=== PATIENT | female | born 1995 | race Hispanic/Latino ===

== ENCOUNTER 2023-12-09 14:03 | Emergency (ER) | payer OTHER ==
--- NOTE | 2023-12-09 14:36 | RAD REPORT ---
EXAMINATION: Transvaginal OB COMPARISON: None. HISTORY: vaginal bleeding and TECHNIQUE: Real-time ultrasound was performed through the pelvis. A transvaginal scan was performed t o better visualize the intrauterine contents and adnexa. FINDINGS: There is a single living intrauterine . Cardiac activity measured at 114 BPM. There is no visible subchorionic hemorrhage. Both ovaries are visualized and appear unremarkable. There is no free fluid in the cul-de-sac. Measurements and Calculations: Dalton rump length 0.6 cm, consistent with a sonographic age of 6 weeks, 3 days. IMPRESSION: Single living intrauterine , with a composite sonographic age of 6 weeks, 3 days.
[2023-12-09 15:19] LABS: Absolute Basophils 0.1 K/uL (0-0.5); Absolute Eosinophils 0.1 K/uL (0-0.5); Absolute Lymphocytes (CBC) 1.9 K/uL (0.7-4.9); Absolute Monocytes 0.7 K/uL (0.1-1.3); Absolute Neutrophil 6.7 K/uL (1.8-8.0); Basophils % 0.9 % (0-1.3); Eosinophils % 1.2 % (0-4.4); Hematocrit 41.1 % (36.0-45.0); Hemoglobin 13.6 g/dL (12.0-15.0); Lymphocytes % 19.8 % (15.3-44.8); MCH 29.4 pg (27.0-35.0); MCV 89.3 fL (80-100); Monocytes % 7.4 % (3.3-12.3); Neutrophils % 70.7 % (41.7-73.7); Platelets 227 thou/uL (152-406); RBC Red Blood Cell Count 4.61 M/uL (3.86-4.86); Red Cell Distribution Width 13.9 % (12.1-15.2)
[2023-12-09 15:21] LABS: Specific Gravity 1.019 (1.005-1.030); Sqamous Epithelial <5 /HPF (None Seen); Urine Bacteria None Seen /HPF (<20); Urine Bilirubin NEGATIVE (Negative); Urine Blood 3+ (Negative); Urine Clarity Clear (Clear); Urine Color Light-Yellow (Yellow); Urine Crystals Unidentified Few /HPF (None Seen); Urine Culture Reflex Order NOT NEEDED; Urine Glucose NEGATIVE (Negative); Urine Ketones 1+ (Negative); Urine Micro Reflex YN NO BILL MICROSCOPIC; Urine Mucus Slight /HPF (None Seen); Urine Nitrite NEGATIVE (Negative); Urine Protein NEGATIVE (Negative); Urine RBC >50 /HPF (None Seen); Urine Urobilinogen Normal (Normal); Urine WBC <5 /HPF (<5); Urine WBC Clump Rare /HPF (None Seen); Urine pH 5.5 (5.0-7.0)
[2023-12-09 15:36] LABS: Anion Gap 8.9 mEq/L (5.0-15.0); Potassium 3.9 mEq/L (3.5-5.1)
--- NOTE | 2023-12-09 15:58 | EDPHYS ---
Physician Documentation [facility] Name: Tahira Howell Age: 28 yrs Sex: Female : 1995 Arrival Date: 12/09/2023 Time: 14:03 Bed 19 Private MD: ED Physician Dwayne Nuñez HPI: 12/08 15:55 This 28 yrs old Female presents to ER via Ambulatory with complaints of ec2 Vaginal Bleeding, + Preg <12wks, Abdominal Pain. 15:55 Patient arrives today for evaluation of vaginal bleeding. Patient reports that she is ec2 several weeks . Has had outpatient ultrasound with a sac with no pole noted. Patient reports no significant medical problems, this is her first . . 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 - Infectious Disease History:: Denies. - Social history:: Smoking status: Patient denies any tobacco usage or history of. ROS: 15:55 Constitutional: as per hpi ec2 Exam: 15:55 Constitutional: GEN: NAD Head: atraumatic Eyes: EOMI Ears: External ears are ec2 normal. CV: regular rate LUNGS: no respiratory distress ABD: non-distended SKIN: no evidence of rashes MSK: no evidence of trauma Vital Signs: 14:48 BP 116 / 69; Pulse 75; Resp 16; Temp 98.6; Pulse Ox 98% on R/A; Weight 88.45 kg; Height cm10 5 ft. 2 in. ; Pain 5/10; 15:15 BP 111 / 70; Pulse 75; Resp 16; Pulse Ox 98% ; me1 16:00 BP 111 / 69; Pulse 86; Resp 16; Temp 98.4; Pulse Ox 99% ; me1 14:48 Body Mass Index 35.67 (88.45 kg, 157.48 cm) cm10 14:48 Pain Scale: Adult cm10 MDM: 14:07 Patient medically screened. ec2 15:55 Data reviewed: vital signs. ED course: Patient arrives today for evaluation of vaginal ec2 bleeding in the setting of . Examination remarkable for well-appearing nontoxic individuals otherwise in no acute distress. Lab work is reassuring with appropriate hCG elevation. Ultrasound shows 6-week and 3-day of approximately. Will discharge home and have her follow-up obstetrics. Return precautions given. . 12/08 14:08 Order name: CBC with Diff; Complete Time: 15:27 ec2 12/08 14:08 Order name: Abo/rh Typing; Complete Time: 15:55 ec2 12/08 14:08 Order name: BMP; Complete Time: 15:55 ec2 12/08 14:08 Order name: UAM; Complete Time: 15:27 ec2 12/08 14:08 Order name: HCG-Quantitative; Complete Time: 15:55 ec2 12/08 14:08 Order name: Transvaginal OB US; Complete Time: 14:50 ec2 Administered Medications: No medications were administered Disposition Summary: 12/09/23 15:57 Discharge Ordered Notes: Location: Home ec2 Condition: Stable ec2 Diagnosis - related conditions, unspecified ec2 - Other specified abnormal uterine and vaginal bleeding ec2 Followup: ec2 - With: Private Physician - When: - Reason: Re-evaluation by your physician Discharge Instructions: - Discharge Summary Sheet ec2 - Vaginal Bleeding During , First Trimester ec2 Forms: - Medication Reconciliation Form ec2 - Antibiotic Education ec2 - Prescription Opioid Use ec2 - Patient Portal Instructions ec2 - Leadership Thank You Letter ec2 Signatures: Dispatcher [employer] Stefania Matt RN RN cm10 Dwayne Nuñez MD MD ec2
--- NOTE | 2023-12-09 15:58 | ER ---
Nurse's Notes [facility] Name: Tahira Howell Age: 28 yrs Sex: Female : 1995 Arrival Date: 12/09/2023 Time: 14:03 Bed 19 Private MD: Diagnosis: related conditions, unspecified;Other specified abnormal uterine and vaginal bleeding Presentation: 12/08 14:48 Chief complaint: Patient states: Spotting X1 week that's getting worse and abdominal cm10 cramping. Pt states she saw her OB on Tuesday. . Coronavirus screen: Client denies travel out of the [place] in the last 14 days. Ebola Screen: Patient denies travel to an Ebola-affected area in the 21 days before illness onset. No symptoms or risks identified at this time. Initial Sepsis Screen: Does the patient meet any 2 criteria? No. Patient's initial sepsis screen is negative. Does the patient have a suspected source of infection? No. Patient's initial sepsis screen is negative. Risk Assessment: Do you want to hurt yourself or someone else? Patient reports no desire to harm self or others. Onset of symptoms was December 09, 2023. 14:48 Method Of Arrival: Ambulatory cm10 14:48 Acuity: JUVENTINO 3 cm10 Triage Assessment: 14:50 General: Appears in no apparent distress. comfortable, Behavior is calm, cooperative. cm10 Neuro: No deficits noted. Level of Consciousness is awake, alert, obeys commands, Oriented to person, place, time, situation, Appropriate for age. Respiratory: No deficits noted. Airway is patent Respiratory effort is even, unlabored, Respiratory pattern is regular, symmetrical. 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 - Infectious Disease History:: Denies. - Social history:: Smoking status: Patient denies any tobacco usage or history of. Screenin:52 [facility] ED Fall Risk Assessment (Adult) History of falling in the last 3 months, cm10 including since admission No falls in past 3 months (0 pts) Confusion or Disorientation No (0 pts) Intoxicated or Sedated No (0 pts) Impaired Gait No (0 pts) Mobility Assist Device Used No (0 pt) Altered Elimination No (0 pt) Score/Fall Risk Level 0 - 2 = Low Risk Oriented to surroundings, Maintained a safe environment, Hourly rounding (assess needs \T\ fall precautionary measures) done. Abuse screen: Denies threats or abuse. Denies injuries from another. Nutritional screening: No deficits noted. Tuberculosis screening: No symptoms or risk factors identified. Assessment: 15:18 General: Appears comfortable, well groomed, well developed, well nourished, Behavior is me1 calm, cooperative, appropriate for age, Reports Spotting X1 week that's getting worse and abdominal cramping. Pt states she saw her OB on Tuesday. . Pain: Complains of pain in suprapubic area, right lower quadrant and left lower quadrant Pain does not radiate. Pain currently is 3 out of 10 on a pain scale. Quality of pain is described as crampy, Pain began one week ago Is continuous. Neuro: Level of Consciousness is awake, alert, obeys commands, Oriented to person, place, time, situation, Appropriate for age. Cardiovascular: Patient's skin is warm and dry. Respiratory: Airway is patent Respiratory effort is even, unlabored, Respiratory pattern is regular, symmetrical. GI: No signs and/or symptoms were reported involving the gastrointestinal system. : Reports vaginal bleeding that is bright red, since one week ago. EENT: No signs and/or symptoms were reported regarding the EENT system. Derm: Skin is intact, is healthy with good turgor, Skin is pink, warm \T\ dry. Musculoskeletal: No signs and/or symptoms reported regarding the musculoskeletal system. Vital Signs: 14:48 BP 116 / 69; Pulse 75; Resp 16; Temp 98.6; Pulse Ox 98% on R/A; Weight 88.45 kg; Height cm10 5 ft. 2 in. ; Pain 5/10; 15:15 BP 111 / 70; Pulse 75; Resp 16; Pulse Ox 98% ; me1 16:00 BP 111 / 69; Pulse 86; Resp 16; Temp 98.4; Pulse Ox 99% ; me1 14:48 Body Mass Index 35.67 (88.45 kg, 157.48 cm) cm10 14:48 Pain Scale: Adult cm10 ED Course: 14:07 Patient arrived in ED. im 14:07 Dwayne Nuñez MD is Attending Physician. ec2 14:24 Transvaginal OB US In Process Unspecified. EDMS 14:49 Triage completed. cm10 14:50 Arm band placed on left wrist. Patient placed in an exam room, on a stretcher. cm10 14:53 Patient has correct armband on for positive identification. Provided Education on: ER cm10 process and procedures.. 15:09 Inserted saline lock: 22 gauge in right antecubital area, using aseptic technique. ss Blood collected. Flushed with 10 mL NS. 15:09 HCG-Quantitative Sent. ss 15:09 UAM Sent. ss 15:09 BMP Sent. ss 15:09 CBC with Diff Sent. ss 15:14 Abo/rh Typing Sent. 15:15 Constance Miguel, RN is Primary Nurse. me1 15:18 No provider procedures requiring assistance completed. me1 16:16 IV discontinued, intact, bleeding controlled, No redness/swelling at site. Pressure ap3 dressing applied. Administered Medications: No medications were administered Medication: 14:52 VIS not applicable for this client. cm10 Outcome: 15:57 Discharge ordered by . ec2 16:15 Discharged to home ambulatory, ap3 16:15 Condition: good 16:15 Discharge instructions given to patient, Instructed on discharge instructions, follow up and referral plans. Demonstrated understanding of instructions, follow-up care, 16:16 Patient left the ED. ap3 Signatures: Dispatcher [employer] EDMS Kathryn Pierre RN RN Kaity Trammell RN RN ap3 Isabel Juarez Clarissa, RN RN cm10 Constance Miguel RN RN me1 Dwayne Nuñez MD MD ec2 Corrections: (The following items were deleted from the chart) 15:18 14:48 Chief complaint: Patient states: Spotting X1 week that's getting worse and me1 abdominal cramping. Pt states she saw her OB on Tuesday. cm10
[2023-12-09 18:13] VITALS: BP 111/69; TEMP 98.4; O2SAT 99
== END 2023-12-09 16:16 | disposition home or self-care (01) ==
LOC: ER 14:03
DX: O20.9 Hemorrhage in early pregnancy, unspecified (principal); Z3A.01 Less than 8 weeks gestation of pregnancy
CPT/HCPCS: 36415; 76817; 80048; 81001; 84702; 85025; 86900; 86901; 99284

== ENCOUNTER 2024-05-23 10:27 | Emergency (ER) | payer MEDICARE, OTHER ==
--- OUTSIDE RECORDS SUMMARY | 2024-05-23 10:31 | XMS REPORT | Continuity of Care Document ---
Author Name Unknown Address [address] [place] [address] [facility] Address [address] [place] [address] Care Team Providers Care Sugar Laboratory Assistant Name Role Phone SID HOLMAN Primary Care Physician LEYDA Godfrey Attending Clinician LEYDA Ross Attending Clinician Leyda Ross MD Attending Clinician [phone] STELLA MAGANA Attending Clinician Unavailable STELLA MAGANA Attending Clinician Unavailable STELLA MAGANA Attending Clinician Unavailable Ultrasound, [facility] Attending Clinician Stella Malcolm MD Attending Clinician [phone], [facility] Attending Clinician Unavailable Doctor Unassigned, [place] Attending Clinician U navailPETAR Martin Attending Clinician PETAR Michael Attending Clinician Petar Michael MD Attending Clinician + Payers Payer Name Policy Type Policy Number Effective Date Expirati on Date Source HIM BC BLUE ADVANTAGE O [id number] 2023 00:00:00 [employer] [facility] [place] STAR [id number] 2023 [facility] [id number] 2016 00:00:00 Problems Condition Name Condition Details Condition Category Status Onset Date Resolution Date Last Treatment Date Treating Clinician Comments Source Obesity Obesity Disease Active 2023-03 00:00: 00 [facility] High-risk in second trimester High-risk in second trimester Disease Active 2023-03 0 00:00: 00 [facility] Allergies, Adverse Reactions, Alerts Allergy Name Allergy Type Status Severity Reaction(s) Onset Date Inactive Date Treating Clinician Comments Source NO KNOWN ALLERGIE S Drug Class Active [facility] Social History Social Habit Start Date Stop Date Quantity Comments Source ASSERTION 2023-11-12 00:00:00 [facility] History of tobacco use Cigarette Smoker [facility] Sexual orientation [facility] Alcoholic beverage intake 2024-05-04 00:00:00 2024-05-04 00:00:00 Ex-drinker (finding) [facility] Tobacco use and exposure 2023-12-12 00:00:00 2023-12-12 00:00:00 Smokeless tobacco non-user [facility] History of Social function 2023-12-05 00:00:00 2023-12-05 00:00:00 [facility] Alcohol Comment 2018-10-31 00:00:00 2018-10-31 00:00:00 once a week [facility] Sex assigned at 1995 00:00:00 1995 00:00:00 [facility] Smoking Status Start Date Stop Date Source Ex-smoker 2023-12-12 00:00:00 2023-12-12 00:00:00 [facility] Medications Ordered Medication Name Filled Medication Name Start Date Stop Date Current Medication? Ordering Clinician Indication Dosage Frequency Signature (SIG) Comments Components Source ondansetron (ZOFRAN) 4 mg tablet 2023-03 00:00: 00 Yes [id number] 4mg Take 1 tablet by mouth every 8 (eight) hours as needed for Nausea and Vomiting (N/V). [facility] pantoprazol e (PROTONIX) 40 mg EC tablet 2023-03 00:00: 00 Yes [id number] 40mg Take 1 tablet by mouth in the morning. [facility] vit no.124/iron /folic ( VITAMIN ORAL) 12-04 10:05: 57 Yes Take by mouth. [facility] Vital Signs Vital Name Observation Time Observation Value Comments S nicolette Systolic blood pressure 2024-05-04 17:17:00 117 mm[Hg] [facility] Diastolic blood pressure 2024-05-04 17:17:00 72 mm[Hg] [facility] Heart rate 2024-05-04 17:17:00 85 /min [facility] Body temperature 2024-05-04 17:17:00 36.78 Delma [facility] Respiratory rate 2024-05-04 17:17:00 18 /min [facility] Body height 2024-05-04 17:17:[address] [facility] Body weight 2024-05-04 17:17:[address] [facility] BMI 2024-05-04 17:17:00 41.15 kg/m2 [facility] Systolic blood pressure 2024-04-06 22:06:00 129 mm[Hg] [facility] Diastolic blood pressure 2024-04-06 22:06:00 75 mm[Hg] [facility] Heart rate 2024-04-06 22:06:00 91 /min [facility] Respiratory rate 2024-04-06 22:06:00 18 /min [facility] Body height 2024-04-06 22:06:[address] [facility] Body weight 2024-04-06 22:06:[address] [facility] BMI 2024-04-06 22:06:00 40.24 kg/m2 [facility] Systolic blood pressure 2024-03-05 16:34:00 113 mm[Hg] [facility] Diastolic blood pressure 2024-03-05 16:34:00 78 mm[Hg] [facility] Heart rate 2024-03-05 16:34:00 74 /min [facility] Body temperature 2024-03-05 16:34:00 36.89 Delma [facility] Respiratory rate 2024-03-05 16:34:00 18 /min [facility] Body height 2024-03-05 16:34:00 157.5 cm [facility] 2024-03-05 16:34:00 95.255 kg [facility] BMI 2024-03-05 16:34:00 38.41 kg/m2 [facility] Systolic blood pressure 2024-02-06 15:56:00 125 mm[Hg] [facility] Diastolic blood pressure 2024-02-06 15:56:00 78 mm[Hg] [facility] Heart rate 2024-02-06 15:56:00 86 /min [facility] Body temperature 2024-02-06 15:56:00 36.83 Delma [facility] Respiratory rate 2024-02-06 15:56:00 18 /min [facility] Body height 2024-02-06 15:56:00 157.5 cm [facility] Body weight 2024-02-06 15:56:00 91.627 kg [facility] BMI 2024-02-06 15:56:00 36.95 kg/m2 [facility] Systolic blood pressure 2024-01-09 16:49:00 119 mm[Hg] [facility] Diastolic blood pressure 2024-01-09 16:49:00 74 mm[Hg] [facility] Heart rate 2024-01-09 16:49:00 90 /min [facility] Body temperature 2024-01-09 16:49:00 36.11 Delma [facility] Respiratory rate 2024-01-09 16:49:00 18 /min [facility] Body height 2024-01-09 16:49:00 157.5 cm [facility] weight 2024-01-09 16:49:00 88.451 kg [facility] BMI 2024-01-09 16:49:00 35.67 kg/m2 [facility] Systolic blood pressure 2023-12-12 13:32:00 112 mm[Hg] [facility] Diastolic blood pressure 2023-12-12 13:32:00 74 mm[Hg] [facility] Heart rate 2023-12-12 13:32:00 83 /min [facility] Respiratory rate 2023-12-12 13:32:00 18 /min [facility] Body height 2023-12-12 13:32:[address] [facility] Body weight 2023-12-12 13:32:[address] [facility] BMI 2023-12-12 13:32:00 35.48 kg/m2 [facility] Systolic blood pressure 2023-12-05 15:06:00 106 mm[Hg] [facility] Diastolic blood pressure 2023-12-05 15:06:00 65 mm[Hg] [facility] Heart rate 2023-12-05 15:06:00 80 /min [facility] Respiratory rate 2023-12-05 15:06:00 18 /min [facility] Body height 2023-12-05 15:06:[address] [facility] Body weight 2023-12-05 15:06:[address] [facility] BMI 2023-12-05 15:06:00 34.93 kg/m2 [facility] Procedures Procedure Date / Time Performed Performing Clinician Source POCT URINALYSIS W/O SPECIFIC GRAVITY 2024-05-04 00:00:00 Luisa [facility] SECOND AND THIRD TRIMESTER ULTRASOUND 2024-04-24 16:56:00 Lu[facility] POCT URINALYSIS W/O SPECIFIC GRAVITY 2024-04-06 00:00:00 LinaAguilar [facility] SECOND AND THIRD TRIMESTER ULTRASOUND 2024-03-20 16:35:00 Luisa [facility] POCT URINALYSIS W/O SPECIFIC GRAVITY 2024-03-05 00:00:00 Luisa [facility] POCT URINALYSIS W/O SPECIFIC GRAVITY 2024-02-06 00:00:00 [facility] 2024-01-20 17:52:33 Doctor Suzanne tong, [place] [facility] SCANNED LAB RESULTS 2024-01-20 17:52:32 Doctor Suzanne tong, [place] [facility] POCT URINALYSIS W/O SPECIFIC GRAVITY 2024-01-09 00:00[facility] 2023-12-12 14:09:48 [facility] W/O SPECIFIC GRAVITY 2023-12-12 00:00:00 Luisa [facility] OB TRANSVAGINAL 2023-12-05 15:28:31 Stephany Moransandy [facility] POCT TEST 2023-12-05 00:00:00 Zenia Moransol [facility] POCT URINALYSIS W/O SPECIFIC GRAVITY 2023-12-05 00:00:00 Luisa [facility] Encounters Start Date/Time End Date/Time Encounter Type Admission Type Attending [facility] Care Department Encounter ID Source 2024-06-01 08:00:00 2024-06-01 08:00:00 Outpatient R CONNER-SOCORRO S, LEYDA CONNER-SOCORRO S, LEYDA [facility] [id number] [facility] 2024-05-15 13:00:00 2024-05-15 13:12:00 Outpatient R CONNER-SOCORRO S, LEYDA CONNER-SOCORRO S, LEYDA [facility] [id number] [facility] 2024-05-04 11:15:00 2024-05-04 11:29:27 Outpatient R CONNER-SOCORRO S, LEYDA CONNER-SOCORRO S, LEYDA [facility] [id number] [facility] 2024-05-04 11:15:00 2024-05-04 11:29:27 Routine Visit Leyda Holguin [facility] 1.2840.114 350.1.13.10 4.2.7.2.686 [id number] [facility] 2024-04-24 09:45:00 2024-04-24 11:01:39 Outpatient R STELLA MAGANA, DEB RANGELEETA [facility] [id number] [facility] 2024-04-24 09:45:00 2024-04-24 11:01:39 Lead Man Over All Dies In Pattern Shop Visit Ultrasound, Benjamín-Stella Welch [facility] BARIATRIC NURSE [facility] 1.2.114 350.1.13.10 4.2.7.2.686 [id number] [facility] 2024-04-24 10:30:00 2024-04-24 10:45:00 Lead Man Over All Dies In Pattern Shop Visit 2, [facility] Stella Magana 2, Adc Lab [facility] 1.84.114 350.1.13.10 4.2.7.2.686 [id number] [facility] 2024-01-20 00:00:00 2024-04-21 06:37:39 Orders Only Doctor Unassigned, [place] Doctor Unassigned, [place] [facility] 1.84.114 350.1.13.10 4.2.7.2.686 [id number] [facility] 2024-01-20 00:00:00 2024-04-21 06:37:30 Orders Only Doctor Unassigned, [place] Doctor Unassigned, [place] [facility] 1.2840.114 350.1.13.10 4.2.7.2.686 [id number] [facility] 2024-04-06 16:15:00 2024-04-06 16:26:59 Outpatient R CONNER-SOCORRO S, LEYDA CONNER-SOCORRO S, LEYDA [facility] [id number] [facility] 2024-04-06 16:15:00 2024-04-06 16:26:59 Routine Visit Conner-Socorro s, Leyda [facility] 1.2.840.114 350.1.13.10 4.2.7.2.686 [id number] [facility] 2024-03-20 09:45:00 2024-03-20 11:22:33 Outpatient P PETAR JAMISON SHAHEEN JASONKristi [facility] [id number] [facility] 2024-03-20 09:45:00 2024-03-20 11:22:33 Lead Man Over All Dies In Pattern Shop Visit Ultrasound, [facility]-stephany Jamison Petar Ethan [facility] BARIATRIC NURSE [facility] 1.2.840.114 350.1.13.10 4.2.7.2.686 [id number] [facility] 2024-03-05 11:00:00 2024-03-05 11:00:00 Routine Visit Conner-Socorro s, Leyda [facility] 1.2.840.114 350.1.13.10 4.2.7.2.686 [id number] [facility] 2024-03-05 11:00:00 2024-03-05 10:43:30 Outpatient R CONNER-SOCORRO S, LEYDA CONNER-SOCORRO S, LEYDA [facility] [id number] [facility] 2024-02-20 09:30:00 2024-02-20 09:45:00 Lead Man Over All Dies In Pattern Shop Visit 2, Adc Lab Conner-Socorro s, Leyda 2, Adc Lab [facility] 1.2.840.114 350.1.13.10 4.2.7.2.686 [id number] [facility] 2024-02-20 09:30:00 2024-02-20 09:30:00 Outpatient R CONNER-SOCORRO S, LEYDA CONNER-SOCORRO S, LEYDA [facility] [id number] [facility] 2024-02-06 09:45:00 2024-02-06 10:09:18 Outpatient R CONNER-SOCORRO S, LEYDA CONNER-SOCORRO S, LEYDA [facility] [id number] [facility] 2024-02-06 09:45:00 2024-02-06 10:09:18 Routine Visit Conner-Socorro s, Leyda [facility] 1.2.840.114 350.1.13.10 4.2.7.2.686 [id number] [facility] 2024-01-31 00:00:00 2024-02-01 15:30:53 Telephone Conner-Socorro s, Leyda [facility] 1.2.840.114 350.1.13.10 4.2.7.2.686 [id number] [facility] 2024-01-18 00:00:00 2024-01-18 09:23:24 Telephone Conner-Socorro s, Leyda [facility] 1.2.840.114 350.1.13.10 4.2.7.2.686 [id number] [facility] 2024-01-09 13:45:00 2024-01-09 13:45:00 Outpatient R CONNER-SOCORRO S, LEYDA CONNER-SOCORRO S, LEYDA [facility] [id number] [facility] 2024-01-09 12:00:00 2024-01-09 12:15:00 Lead Man Over All Dies In Pattern Shop Visit 2, Adc Lab Conner-Socorro s, Leyda 2, Adc Lab [facility] 1.2.840.114 350.1.13.10 4.2.7.2.686 [id number] [facility] 2024-01-09 11:15:00 2024-01-09 11:15:00 Routine Visit Conner-Socorro s, Leyda [facility] 1.2.840.114 350.1.13.10 4.2.7.2.686 [id number] [facility] 2023-12-07 00:00:00 2024-01-07 18:19:09 Patient Secure Msg Doctor Unassigned, [place] Doctor Unassigned, [place] [facility] 1.2.840.114 350.1.13.10 4.2.7.2.686 [id number] [facility] 2024-01-05 00:00:00 2024-01-05 10:28:32 Telephone Conner-Socorro s, Leyda [facility] 1.2.840.114 350.1.13.10 4.2.7.2.686 [id number] [facility] 2023-12-26 00:00:00 2023-12-26 09:33:16 Telephone Conner-Socorro s, Leyda [facility] 1.2.840.114 350.1.13.10 4.2.7.2.686 [id number] [facility] 2023-12-12 08:15:00 2023-12-12 08:45:42 Outpatient R CONNER-SOCORRO S, LEYDA CONNER-SOCORRO S, LEYDA [facility] [id number] [facility] 2023-12-12 08:15:00 2023-12-12 08:45:42 Routine Visit Conner-Socorro s, Leyda [facility] 1.2.840.114 350.1.13.10 4.2.7.2.686 [id number] [facility] 2023-12-09 09:00:00 2023-12-09 09:00:00 Outpatient R CONNER-SOCORRO S, LEYDA CONNER-SOCORRO S, LEYDA [facility] [id number] [facility] 2023-12-07 00:00:00 2023-12-07 15:05:06 Telephone Conner-Socorro s, Leyda [facility] 1.2.840.114 350.1.13.10 4.2.7.2.686 [id number] [facility] 2023-12-07 10:30:00 2023-12-07 10:30:00 Lead Man Over All Dies In Pattern Shop Visit 2, Adc Lab Conner-Socorro s, Leyda 2, [facility] Lab [facility] 1.2.840.114 350.1.13.10 4.2.7.2.686 [id number] [facility] 2023-12-07 10:30:00 2023-12-07 10:24:53 Outpatient R CONNER-SOCORRO S, LEYDA CONNER-SOCORRO S, LEYDA [facility] [id number] [facility] 2023-12-06 00:00:00 2023-12-06 10:57:20 Patient Secure Msg Doctor Unassigned, [place] Doctor Unassigned, [place] [facility] 1.2.840.114 350.1.13.10 4.2.7.2.686 [id number] [facility] 2023-12-05 11:30:00 2023-12-05 11:45:00 Lead Man Over All Dies In Pattern Shop Visit 2, Adc Lab Conner-Socorro s, Leyda 2, Adc Lab [facility] 1.2.840.114 350.1.13.10 4.2.7.2.686 [id number] [facility] 2023-12-05 00:00:00 2023-12-05 10:32:34 Telephone Ubaldo-Socorro s, Leyda [facility] 1.2.840.114 350.1.13.10 4.2.7.2.686 [id number] [facility] 2023-12-05 10:00:00 2023-12-05 10:29:57 Outpatient R CONNER-SOCORRO S, LEYDA CONNER-SOCORRO S, LEYDA [facility] [id number] [facility] 2023-12-05 10:00:00 2023-12-05 10:29:57 Initial Visit Conner-Socorro s, Leyda [facility] 1.2.840.114 350.1.13.10 4.2.7.2.686 [id number] [facility] 2023-12-02 14:00:00 2023-12-02 14:00:00 Outpatient R CONNER-SOCORRO S, LEYDA CONNER-SOCORRO S, LEYDA [facility] [id number] [facility] 2023-11-28 00:00:00 2023-11-28 10:04:34 Telephone Conner-Socorro s, Leyda [facility] 1.2.840.114 350.1.13.10 4.2.7.2.686 [id number] [facility] 2020-02-14 09:30:00 2020-02-14 09:30:00 Outpatient R [facility] [id number] [facility] Results Test Description Test Time Test Comments Results Result Co mments Source [facility]o Specific [id number] 22:07:00* Test Item Value Reference Range Interpretation Comme nts POCT PH U (test code = 3254) n/a 5-8 POCT U LEUK EST (test code = 3263) n/a Negative - Negative POCT U NIT (test code = 3262) n/a Negative - Negati ve POCT U PROT (test code = 3259) Negative Negative - Negat emir POCT U GLU (test code = 3256) 500 Negative - Negati ve POCT U KETONE (test code = 3258) n/a Negative - Neg ative POCT U BLD (test code = 3257) n/a Negative - Negati ve [facility] Urinalysis w/o Specific [id number] 16:36:00* Test Item Value Reference Range Interpretation Comme nts POCT PH U (test code = 3254) n/a 5-8 POCT U LEUK EST (test code = 3263) n/a Negative - N egative POCT U NIT (test code = 3262) n/a Negative - Negati ve POCT U PROT (test code = 3259) neg Negative - Negat emir POCT U GLU (test code = 3256) neg Negative - Negati ve POCT U KETONE (test code = 3258) n/a Negative - Neg ative POCT U BLD (test code = 3257) n/a Negative - Negati ve [facility] Urinalysis w/o Specific [id number] 15:56:00* Test Item Value Reference Range Interpretation Comme nts POCT PH U (test code = 3254) n/a 5-8 POCT U LEUK EST (test code = 3263) n/a Negative - Negative POCT U NIT (test code = 3262) n/a Negative - Negati ve POCT U PROT (test code = 3259) negative Negative - Negat emir POCT U GLU (test code = 3256) normal Negative - Negati ve POCT U KETONE (test code = 3258) n/a Negative - Neg ative POCT U BLD (test code = 3257) n/a Negative - Negati ve [facility] LAB [id number] 17:52:33Or[facility] by an unspecified provider[facility] 20[facility]-20 17:52:32Ordered by an unspecified provider.[facility] w/o Specific [id number] 16:53:00* Test Item Value Reference Range Interpretation Comme nts POCT PH U (test code = 3254) n/a 5-8 POCT U LEUK EST (test code = 3263) n/a Negative - N egative POCT U NIT (test code = 3262) n/a Negative - Negati ve POCT U PROT (test code = 3259) neg Negative - Negat emir POCT U GLU (test code = 3256) neg Negative - Negati ve POCT U KETONE (test code = 3258) n/a Negative - Neg ative POCT U BLD (test code = 3257) n/a Negative - Negati ve [facility]/o Specific [id number] 13:33:00* Test Item Value Reference Range Interpretation Comme nts POCT PH U (test code = 3254) n/a 5-8 POCT U LEUK EST (test code = 3263) n/a Negative - N egative POCT U NIT (test code = 3262) n/a Negative - Negati ve POCT U PROT (test code = 3259) neg Negative - Negat emir POCT U GLU (test code = 3256) neg Negative - Negati ve POCT U KETONE (test code = 3258) n/a Negative - Neg ative POCT U BLD (test code = 3257) n/a Negative - Negati ve [facility] w/o Specific [id number] 15:24:00* Test Item Value Reference Range Interpretation Comme nts POCT PH U (test code = 3254) N/A 5-8 POCT U LEUK EST (test code = 3263) N/A Negative - Negative POCT U NIT (test code = 3262) N/A Negative - Negati ve POCT U PROT (test code = 3259) Negative Negative - Negat emir POCT U GLU (test code = 3256) Negative Negative - Negati ve POCT U KETONE (test code = 3258) N/A Negative - Neg ative POCT U BLD (test code = 3257) N/A Negative - Negati ve [facility] [id number] 15:23:00* Test Item Value Reference Range Interpretation Comme nts POCT PREG (test code = 1605) Positive On board controls acceptable with C Line (test code = 3574) Yes POCT PREG LOT # (test code = 3575) POCT PREG TEST DATE ( test code = 3576) [facility] Notes Date/Time Note Provider Source 2024-05-04 11:15:00 Age: [age] year old GA: 26w6d ASSESSMENT: Kajal Nguyen is a 28 year old at 26w6d who presents for routine visit. Patient Active Problem List Diagnosis High-risk in second trimester Obesity PLAN 1. High-risk in second trimester --low risk NIPS --MSAFP NL --03/20/24: Normal anatomy but limited, 51% --04/24/24: Nl fu, 45%ile 2. Cervical high risk human papillomavirus (HPV) DNA test positive --No pap, will repeat PP 3. Exclusive by mother - ELECTRIC BREAST PUMP 4. 26 weeks gestation of - POCT Urinalysis w/o Specific [place] [facility] 2024-04-24 10:30:00 50 Glucola was given @ 1129. No issues. Pt finished 1129. Draw Time 1229. Alycia Wood 04/24/2024 11:29 AM [facility] 2024-04-24 10:30:00 Images from the original note were not included. Venipuncture collection performed by clean technique on the right anticubitus. Total of 1 attempts were made. Slight pressure and a bandage/dressing were applied to the site(s). The patient experienced no complications. The following specimens were processed according to instructions and sent to [facility] laboratories per lab order on 04/24/2024: LT BLUE SST 2 RED 1 LAV 2 PPT DK GREEN (LiHep) DK GREEN (SodH) MARTINEZ DK BLUE (K2) DK BLUE (S) ACD Blood Culture NIPT/NTD [facility] 2024-04-24 09:45:00 Reviewed recent ultrasound results, show: Normal growth and anatomy follow up [facility] 2024-04-06 16:15:00 Age: [age] year old GA: 22w6d ASSESSMENT: Kajal Nguyen is a 28 year old at 22w6d who presents for routine visit. Patient Active Problem List Diagnosis High-risk in first trimester Obesity PLAN 1. High-risk in second trimester --low risk NIPS --MSAFP Nl 2. Cervical high risk human papillomavirus (HPV) DNA test positive --Nl pap, will repeat pp 3. 22 weeks gestation of - POCT Urinalysis w/o Specific [place] [facility] 2024-04-06 16:15:00 Addended by: RODRIGO SAHU on: 04/24/2024 11:24 AM Modules accepted: Orders [facility] 2024-03-20 09:45:00 Reviewed recent ultrasound results, show: Normal anatomy [facility] 2024-03-05 11:00:00 Age: [age] year old GA: 18w2d ASSESSMENT: Kajal Nguyen is a 28 year old at 18w2d who presents for routine visit. Patient Active Problem List Diagnosis High-risk in first trimester Obesity PLAN 1. High-risk in second trimester --low risk NIPS --MSAFP NL 2. Cervical high risk human papillomavirus (HPV) DNA test positive --NO pap, will repeat pp 3. 18 weeks gestation of - POCT Urinalysis w/o Specific [place] [facility] 2024-02-20 09:30:00 Images from the original note were not included. Venipuncture collection performed by clean technique on the right anticubitus. Total of 1 attempts were made. Slight pressure and a bandage/dressing were applied to the site(s). The patient experienced no complications. The following specimens were processed according to instructions and sent to [facility] laboratories per lab order on 02/20/2024 : LT BLUE SST 1 RED LAV PPT DK GREEN (LiHep) DK GREEN (SodH) MARTINEZ DK BLUE (K2) DK BLUE (S) ACD Blood Culture NIPT/NTD [facility] 2024-02-06 09:45:00 Age: [age] year old GA: 14w2d ASSESSMENT: Kajal Nguyen is a 28 year old at 14w2d who presents for routine visit. Patient Active Problem List Diagnosis High-risk in first trimester PLAN 1. High-risk in second trimester --low risk NIPS --carrier testing neg - CONSULT MATERNAL MEDICINE ULTRASOUND Multiple Gestation: No 2. 14 weeks gestation of - POCT Urinalysis w/o Specific Gackle - Alpha Fetoprotein-Maternal Ser; Future - CONSULT MATERNAL MEDICINE ULTRASOUND Multiple Gestation: No 3. Cervical high risk human papillomavirus (HPV) DNA test positive --Plan repeat pap pp Leyda Moran MD [facility] 2024-02-01 15:30:27 Returned patients call. Patient given Dr. Moran recommendations. Patient verbalized understanding. No other questions or concerns at this time. Reyes Emery RN 02/01/2024 3:30 PM [facility] Reyes Emery RN [facility] 2024-02-01 14:59:03 Can use over the counter colace. Stop the Zofran ( if nausea has resolved) since likely worsening constipation. I pain persists can consider going to Er if needs to be disimpacted. [facility] 2024-02-01 11:54:36 Patient states she has not taken Zofran in a few days. She reports eating 3 meals a day with nuts as a snack. Will advise Dr. Luisa Emery RN 02/01/2024 11:55 AM [facility] 2024-01-31 12:37:56 Constipation is a side effect of zofran.Is the patient still taking this? Also how much food is the patient consuming daily?? [facility] 2024-01-31 10:49:37 Contacted patient. Patient states she is constipated and wants to know what else she can do. She reports her last BM as Tuesday and it was hard and painful. She has tried miralax, milk of mag, fiber choice. She did an enema at 0300 last night and reports only water came out and she still feels full. She drinks about 4-5 glasses of water daily. She reports pain below her belly button. Rates her pain 7/10. Patient advised I would send call to provider for further advice/medication if needed. Reyes Emery RN 01/31/2024 10:54 AM [facility] 2024-01-31 09:14:31 Kajal Nguyen is a 28 year old female Pt calling states she is experiencing constipation and has taken the meds suggested by provider. Pt is still esperiencing constipation and would like something called out for her. Thank you [facility] [address] [place] [address] [place] [facility] 2024-01-18 09:22:04 Received Panorama results via fax. Stamped and will be scanned/uploaded into pt's chart. Received Horizon results via fax. Stamped and will be scanned/uploaded into pt's chart. [employer] message sent. MELANIE ALEGRE RN 01/18/2024 9:22 AM [employer]EE [employer]EL[employer] Melanie Alegre RN [facility] 2024-01-09 12:00:00 Images from the original note were not included. Venipuncture collection performed by clean technique on the left anticubitus. Total of 1 attempts were made. Slight pressure and a bandage/dressing were applied to the site(s). The patient experienced no complications. The following specimens were processed according to instructions and sent to [facility] laboratories per lab order on 01/09/2024 : LT BLUE SST 3 RED LAV 2 PPT DK GREEN (LiHep) DK GREEN (SodH) MARTINEZ DK BLUE (K2) DK BLUE (S) ACD Blood Culture NIPT/NTD Jose L collected Urine done in clinic [facility] 2024-01-09 11:15:00 Age: [age] year old GA: 10w2d ASSESSMENT: Kajal Nguyen is a 28 year old at 10w2d who presents for routine visit. Patient Active Problem List Diagnosis High-risk in first trimester PLAN 1. High-risk in first trimester --Blood type A+ --Remainder of OB labs done today 2. Cervical high risk human papillomavirus (HPV) DNA test positive --reviewed results --recommend repeat pap 3. Nausea and vomiting, unspecified vomiting type --unresponsive to OTC - ondansetron (ZOFRAN) 4 mg tablet; Take 1 tablet by mouth every 8 (eight) hours as needed for Nausea and Vomiting (N/V). Dispense: 20 tablet; Refill: 1 4. Gastroesophageal reflux disease without esophagitis --unresponsive to OTC - pantoprazole (PROTONIX) 40 mg EC tablet; Take 1 tablet by mouth in the morning. Dispense: 30 tablet; Refill: 1 5. 10 weeks gestation of - POCT Urinalysis w/o Specific Gackle Leyda Moran MD [facility] 2024-01-05 10:24:05 Name and verified, pt states she is having nausea with vomiting 2-3 ttimes a day. Pt states she is able to eat afterwards and can hold it down, pt reports she is able to hold tolerate liquids and is staying hydrated. Pt also reports having hearburn and has tried taking Tums with no relief. Pt advised to try nausea and vomiting tips and to call us back if symptoms persist or worsen. Pt verbalized understanding. ER precautions given for dehydration. Tips and safe med list sent via [employer]. Marley Maurice RN 01/05/2024 10:27 AM Marley Maurice RN [facility] 2024-01-05 08:33:26 Kajal Nguyen is a 28 year old female Patient is complaining of vomiting, has tried over the counter recommended previously. Also experiencing heart burn. Would like to discuss with nurse. Pratibha Mata [facility] 2023-12-26 09:30:55 Name and verifies, pt states she is having nausea accompanied by vomiting at least twice a day. Advised pt to try Vitamin B6 and encouraged hydration. Message sent via [employer] with written instructions for comfort. Informed pt if symtoms worsen to please call us back. Pt verbalized understanding. Marley Maurice RN 12/26/2023 9:32 AM Marley Maurice RN [facility] 2023-12-26 08:36:53 Pt requesting nausea medication to be sent in for her. Barbara Roberts [facility] 2023-12-12 08:15:00 ROUTINE VISIT 12/12/2023 9:11 AM SUBJECTIVE Kajal Nguyen is a 28 year old at 6w4d who presents for routine visit. She has some spotting still today; denies contractions, loss of fluid, vaginal bleeding, and signs or symptoms of pre-eclampsia. Went ot ER at [facility] on found to have a viable fetus. OBJECTIVE BP 112/74 (BP Location: Left arm, Patient Position: Sitting, BP CUFF SIZE: Adult Medium) | Pulse 83 | Resp 18 | Ht 5' 2" (1.575 m) | Wt 194 lb (88 kg) | LMP 09/16/2023 (Exact Date) | BMI 35.48 kg/m? Physical Exam: Gen: A&Ox3, NAD Pulm: No labored breathing Abd: Soft, gravid, NTTP, ND, no rebound or guarding Ext: No calf tenderness Transvaginal Ultrasound performed: present gestational sac present yolk sac , lower aspect with some debri 6w2d [place] rump length 121 heart rate ASSESSMENT: Kajal Nguyen is a 28 year old at 6w4d who presents for routine visit. Patient Active Problem List Diagnosis High-risk in first trimester PLAN 1. High-risk in first trimester --reviewed with pt US findings. --NL pap but + HPV. Plan to repeat pp. 2. examination or test, positive result - POCT Urinalysis w/o Specific Gackle - Cbc with Diff; Future - Hcv Antibody; Future - Hepatitis B Surface Antigen; Future - HIV 1/2 Ag-Ab with Reflex; Future - Rubella Screen IgG; Future - Urine Culture; Future - VZV Antibody Screen; Future - Glycosylated Hemoglobin (A1C); Future 3. 6 weeks gestation of --Reviewed US findings --NIPS testing planned at next visit. Leyda Moran MD T [facility] 2023-12-07 10:30:00 Images from the original note were not included. Venipuncture collection performed by clean technique on the left anticubitus. Total of 1 attempts were made. Slight pressure and a bandage/dressing were applied to the site(s). The patient experienced no complications. The following specimens were processed according to instructions and sent to [facility] [employer] per lab order on 12/07/2023 : LT BLUE SST 1RST RED LAV PPT DK GREEN (LiHep) DK GREEN (SodH) MARTINEZ DK BLUE (K2) DK BLUE (S) ACD Blood Culture NIPT/NTD T [facility] 2023-12-05 11:30:00 Images from the original note were not included. Venipuncture collection performed by clean technique on the left anticubitus. Total of 1 attempts were made. Slight pressure and a bandage/dressing were applied to the site(s). The patient experienced no complications. The following specimens were processed according to instructions and sent to [facility] laboratories per lab order on 12/05/2023 : LT BLUE SST 1 RED LAV 1 PPT DK GREEN (LiHep) DK GREEN (SodH) MARTINEZ DK BLUE (K2) DK BLUE (S) ACD Blood Culture NIPT/NTD T [facility] 2023-12-05 10:32:24 Patient seen in office today. Reyes Emery RN 12/05/2023 10:32 AM Reyes Emery RN [facility] 2023-12-05 08:13:14 Pt 28 yr old female, 11wks states she has been spotting since Tuesday. Pt has concerns asking if she could be seen today. Would like a call back to discuss. Felipa Cruz [facility] 2023-11-28 10:04:27 Noted Marley Maurice RN 11/28/2023 10:04 AM Marley Maurice RN [facility] 2023-11-28 09:48:42 Pt 10wks is scheduled for New ob visit on 12/02/2023 @ 2pm with Dr. Ubaldo Aguilar. LMP 09/16/2023 Felipa Cruz [facility]
--- NOTE | 2024-05-23 11:09 | EDPHYS ---
Physician Documentation [facility] Name: Tahira Howell Age: 28 yrs Sex: Female : 1995 Arrival Date: 05/23/2024 Time: 10:27 Bed 12 Private MD: ED Physician Dylan De Leon HPI: 05/23 11:08 This 28 yrs old Female presents to ER via Ambulatory with complaints of Ear ms3 Pain. 11:08 28-year-old female with no past medical history presents to the emergency department ms3 for cough, nasal congestion, ear pain for 3 days. Patient denies nausea, vomiting, chest pain, fever. Patient endorses chills.. 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 - Infectious Disease History:: Denies. - Social history:: Smoking status: Patient denies any tobacco usage or history of. ROS: 11:08 Cardiovascular: Negative for chest pain, and palpitations. Respiratory: Negative for ms3 shortness of breath, cough, wheezing, and pleuritic chest pain, Abdomen/GI: Negative for abdominal pain, nausea, vomiting, diarrhea, and constipation, MS/Extremity: Negative for injury and deformity, Skin: Negative for injury, rash, and discoloration, 11:08 Constitutional: Positive for chills, Negative for fever, Exam: 11:08 Constitutional: This is a well developed, well nourished patient who is awake, alert, ms3 and in no acute distress. Chest/axilla: Normal chest wall appearance and motion. Nontender with no deformity. Cardiovascular: Regular rate and rhythm with a normal S1 and S2. No gallops, murmurs, or rubs. Normal PMI, no JVD. No pulse deficits. Respiratory: Lungs have equal breath sounds bilaterally, clear to auscultation and percussion. No rales, rhonchi or wheezes noted. No increased work of breathing, no retractions or nasal flaring. Abdomen/GI: Soft, non-tender, with normal bowel sounds. No distension or tympany. No guarding or rebound. No evidence of tenderness throughout. 11:08 ENT: External ear(s): are unremarkable, Ear canal(s): are normal, TM's: dullness, bilaterally, Posterior pharynx: Tonsils: are normal in appearance, no enlargement, no erythema, no exudate, Uvula: normal, midline, non-edematous, no erythema, swelling, is not appreciated, erythema, that is mild, exudate, is not appreciated, peritonsillar mass, is not appreciated, Vital Signs: 10:39 BP 135 / 79; Pulse 108; Resp 18; Temp 98.9(O); Pulse Ox 97% on R/A; Weight 104.33 kg; cm10 Height 5 ft. 7 in. ; Pain 7/10; 10:39 Body Mass Index 36.02 (104.33 kg, 170.18 cm) cm10 10:39 Pain Scale: Adult cm10 MDM: 11:01 Medical Screening Exam initiated ms3 11:08 Differential diagnosis: Flu versus COVID versus upper respiratory infection. Data ms3 reviewed: vital signs, nurses notes, and as a result, I will discharge patient. Counseling: I had a detailed discussion with the patient and/or guardian regarding the historical points, exam findings, and any diagnostic results supporting the discharge/admit diagnosis, the need for outpatient follow up, to return to the emergency department if symptoms worsen or persist or if there are any questions or concerns that arise at home. Special discussion: I discussed with the patient/guardian in detail that at this point there is no indication for admission to the hospital. It is understood, however, that if the symptoms persist or worsen the patient needs to return immediately for re-evaluation. ED course: Discussed physical exam findings with patient. Patient offered flu and COVID testing and patient declines at this time. Discussed Tylenol and Claritin use for symptoms. All questions were answered. Return precautions discussed include worsening symptoms, or any other concerns. Patient understands and agrees with plan. Patient is alert and oriented x 4, no apparent distress, nontoxic-appearing, speaking full sentences.. Administered Medications: No medications were administered Disposition Summary: 05/23/24 11:08 Discharge Ordered Notes: Location: Home ms3 Condition: Stable ms3 Diagnosis - Acute upper respiratory infection, unspecified ms3 - Pain in throat ms3 - Otalgia, right ear ms3 Followup: ms3 - With: Private Physician - When: 2 - 3 days - Reason: Recheck today's complaints Discharge Instructions: - Discharge Summary Sheet ms3 - Upper Respiratory Infection, Adult ms3 Forms: - Work release form iw - Medication Reconciliation Form ms3 - Antibiotic Education ms3 - Prescription Opioid Use ms3 - Patient Portal Instructions ms3 - Leadership Thank You Letter ms3 Signatures: Dylan De Leon DO DO ms3 Stefania Maurice, RN RN cm10
--- NOTE | 2024-05-23 11:09 | ER ---
Nurse's Notes [facility] Name: Tahira Howell Age: 28 yrs Sex: Female : 1995 Arrival Date: 05/23/2024 Time: 10:27 Bed 12 Private MD: Diagnosis: Acute upper respiratory infection, unspecified;Pain in throat;Otalgia, right ear Presentation: 05/23 10:39 Chief complaint: Patient states: sore throat and right ear pain onset Tuesday. Pt also cm10 reports productive cough. No fevers. Pt reports taking OTC meds with no relief. Pt is 30 weeks . Coronavirus screen: Client denies travel out of the [place] in the last 14 days. Ebola Screen: Patient denies travel to an Ebola-affected area in the 21 days before illness onset. Initial Sepsis Screen: Does the patient meet any 2 criteria? No. Patient's initial sepsis screen is negative. Does the patient have a suspected source of infection? No. Patient's initial sepsis screen is negative. Risk Assessment: Do you want to hurt yourself or someone else? Patient reports no desire to harm self or others. Onset of symptoms was May 18, 2024. 10:39 Method Of Arrival: Ambulatory cm10 10:39 Acuity: JUVENTINO 4 cm10 Triage Assessment: 10:41 General: Appears in no apparent distress. uncomfortable, Behavior is calm, cooperative. cm10 Pain: Complains of pain in right ear Pain does not radiate. Pain currently is 7 out of 10 on a pain scale. Quality of pain is described as sharp. EENT: Reports pain in right ear when swallowing. Neuro: No deficits noted. Level of Consciousness is awake, alert, obeys commands, Oriented to person, place, time, situation, Appropriate for age. Respiratory: No deficits noted. Reports cough that is productive, Airway is patent Respiratory effort is even, unlabored, Respiratory pattern is regular, symmetrical. 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 - Infectious Disease History:: Denies. - Social history:: Smoking status: Patient denies any tobacco usage or history of. Screenin:00 [facility] ED Fall Risk Assessment (Adult) History of falling in the last 3 months, iw including since admission No falls in past 3 months (0 pts) Confusion or Disorientation No (0 pts) Intoxicated or Sedated No (0 pts) Impaired Gait No (0 pts) Mobility Assist Device Used No (0 pt) Altered Elimination No (0 pt) Score/Fall Risk Level 0 - 2 = Low Risk Oriented to surroundings, Maintained a safe environment. Abuse screen: Denies threats or abuse. Denies injuries from another. Nutritional screening: No deficits noted. Tuberculosis screening: No symptoms or risk factors identified. Assessment: 11:00 General: Appears in no apparent distress. Behavior is calm, cooperative. Pain: iw Complains of pain in right ear. Neuro: Level of Consciousness is awake, alert, obeys commands, Oriented to person, place, time, situation, Moves all extremities. Full function. Cardiovascular: Patient's skin is warm and dry. Respiratory: Respiratory effort is even, unlabored, Respiratory pattern is regular. Derm: Skin is intact, is healthy with good turgor. Musculoskeletal: Range of motion: intact in all extremities. Vital Signs: 10:39 BP 135 / 79; Pulse 108; Resp 18; Temp 98.9(O); Pulse Ox 97% on R/A; Weight 104.33 kg; cm10 Height 5 ft. 7 in. ; Pain 7/10; 10:39 Body Mass Index 36.02 (104.33 kg, 170.18 cm) cm10 10:39 Pain Scale: Adult cm10 ED Course: 10:31 Patient arrived in ED. al6 10:32 Dylan De Leon DO is Attending Physician. ms3 10:40 Triage completed. cm10 10:41 Arm band placed on right wrist. Patient placed in an exam room. cm10 11:00 Patient has correct armband on for positive identification. iw 11:43 Maria L Emanuel, RN is Primary Nurse. iw 11:50 No provider procedures requiring assistance completed. Patient did not have IV access iw during this emergency room visit. Administered Medications: No medications were administered Medication: 11:50 VIS not applicable for this client. iw Outcome: 11:08 Discharge ordered by . ms3 11:50 Discharged to home ambulatory, iw 11:50 Condition: good 11:50 Discharge instructions given to patient, Instructed on discharge instructions, follow up and referral plans. Demonstrated understanding of instructions, follow-up care, 11:51 Patient left the ED. iw Signatures: Maria L Emanuel, RN RN iw Dylan De Leon DO DO ms3 Stefania Maurice RN RN cm10 Miya Pina al6
[2024-05-23 17:26] VITALS: BP 135/79; TEMP 98.9; O2SAT 97
== END 2024-05-23 11:51 | disposition home or self-care (01) ==
LOC: ER 10:27
DX: J06.9 Acute upper respiratory infection, unspecified (principal); H92.01 Otalgia, right ear